=== PATIENT | female | born 1995 | race Two or more races ===

== ENCOUNTER 2019-01-28 22:13 | Emergency (ER) | payer OTHER ==
[~2019-01-28] VITALS: Ht 172.7 cm; Wt 88.5 kg
[2019-01-28] MEDS ORDERED: ONDANSETRON PF 4 MG/2 ML VIAL. ONE (22:20)
[2019-01-28] MEDS ORDERED: fentaNYL PF VIAL 100 MCG/2 ML VIAL ONE (22:20)
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
[2019-01-28] MEDS ORDERED: ONDANSETRON PF 4 MG/2 ML VIAL. IV ONE (22:30)
[2019-01-28] MEDS ORDERED: IV RINGERS,LACTATED 500ML 1,000 ML IV ONE (22:30)
[2019-01-28] MEDS ORDERED: fentaNYL PF VIAL 100 MCG/2 ML VIAL IV ONE (22:30)
[2019-01-28 22:38] LABS: BASO % 0 % (0-3); EOS # 0.1 x10^3/uL (0.0-0.7); EOS % 1 % (0-3); HEMATOCRIT 40.1 % (36.0-47.0); HEMOGLOBIN 13.9 g/dL (12.0-15.5); LYMPH # 3.9 x10^3/uL (1.0-4.8); LYMPH % 56 % (24-48); MEAN CORPUSCULAR HEMOGLOBIN 31 pg (25-35); MEAN CORPUSCULAR HGB CONC 35 g/dL (31-37); MEAN CORPUSCULAR VOLUME 89 fL (79-100); MONO # 0.6 x10^3/uL (0.0-1.1); MONO % 9 % (0-9); NEUT # 2.4 x10^3uL (1.8-7.7); NEUT % 35 % (31-73); PLATELET COUNT 222 x10^3/uL (140-400); RED BLOOD COUNT 4.51 x10^6/uL (3.50-5.40); RED CELL DISTRIBUTION WIDTH 12.9 % (11.5-14.5); WHITE BLOOD COUNT 7.1 x10^3/uL (4.0-11.0)
[2019-01-28] MEDS ORDERED: HYDROcodone/APAP 10/325 1 TAB TABLET PO ONE (22:45)
[2019-01-28] MEDS ORDERED: IV NORMAL SALINE 1000ML BAG 1,000 ML IV ONE (22:45)
[2019-01-28 22:53] LABS: CALCIUM 8.9 mg/dL (8.5-10.1); CREATININE 0.7 mg/dL (0.6-1.0); GFR 102.8; POTASSIUM 3.6 mmol/L (3.5-5.1)
[2019-01-28 23:00] LABS: ALBUMIN 4.2 g/dL (3.4-5.0); TOTAL BILIRUBIN 0.3 mg/dL (0.2-1.0); TOTAL PROTEIN 8.5 g/dL (6.4-8.2)
[2019-01-28] MEDS ORDERED: NAPR-683 PO (23:35)
[2019-01-28] MEDS ORDERED: HYDR-3164 PO (23:35)
[2019-01-29] VITALS: BP 118/72
== END 2019-01-29 00:20 | disposition home or self-care (01) ==
LOC: ER 22:13
DX: T21.21XA Burn of second degree of chest wall, initial encounter (principal); T31.0 Burns involving less than 10% of body surface; X12.XXXA Contact with other hot fluids, initial encounter; Y93.89 Activity, other specified; Y92.89 Other specified places as the place of occurrence of the external cause; Y99.8 Other external cause status
CPT/HCPCS: 16020; 36415; 80053; 85025; 96374; 96375; 99284; J2405; J3010; J7030

== ENCOUNTER 2019-09-12 19:15 | Emergency (ER) | payer OTHER ==
[~2019-09-12] VITALS: Ht 170.2 cm; Wt 75.6 kg
[~2019-09-12 19:15] MED LIST: HYDR-3164 PO; NAPR-683 PO
[2019-09-12 19:41] VITALS: BP 119/60
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
[2019-09-12] MEDS ORDERED: CYCL10TA2 PO (21:16)
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
== END 2019-09-12 21:29 | disposition home or self-care (01) ==
LOC: ER 19:15
DX: S16.1XXA Strain of muscle, fascia and tendon at neck level, initial encounter (principal); R51 Headache; F41.9 Anxiety disorder, unspecified; F17.200 Nicotine dependence, unspecified, uncomplicated; V89.2XXA Person injured in unspecified motor-vehicle accident, traffic, initial encounter; Y93.89 Activity, other specified; Y92.413 State road as the place of occurrence of the external cause; Y99.8 Other external cause status
CPT/HCPCS: 70450; 72125; 81025; 99285

== ENCOUNTER 2021-02-21 11:40 | Emergency (ER) | payer OTHER ==
[~2021-02-21] VITALS: Ht 170.2 cm; Wt 75.0 kg
[~2021-02-21 11:40] MED LIST changes: +CYCL10TA2 PO
[2021-02-21 13:28] LABS: BILIRUBIN,URINE NEGATIVE (NEG); CLARITY,URINE CLEAR; COLOR,URINE YELLOW; NITRITE,URINE NEGATIVE (NEG); PH,URINE 6.5 (<5.0-8.0); PROTEIN,URINE TRACE mg/dL (NEG-TRACE); UROBILINOGEN,URINE 0.2 mg/dL (0.2 mg/dL)
[2021-02-21 13:29] LABS: BACTERIA,URINE FEW /HPF (0-FEW); RBC,URINE 0 /HPF (0-2)
[2021-02-21 14:43] VITALS: BP 101/55
--- NOTE | 2021-02-21 14:44 | RAD ---
US OB LIMITED Clinical Indication: Reason: abd pain, 15 weeks / Comparison: None. Technique: Multiple grayscale images, color Doppler, and M-mode images of the uterus are obtained. Findings: There is a single intrauterine gestation in breech presentation. The placenta is posterior in locatio n without evidence of placenta previa. The amount of amniotic fluid appears appropriate. Amniotic fl uid index is 15 cm. Cervical length is 3.3 cm. Biometrical data: BPD = 3.3 cm for 16 weeks 1 days. HC = 12.3 cm for 16 weeks 1 days. AC = 10.4 cm for 16 weeks 3 days. FL = 2 cm for 16 weeks 1 days. HC/AC ratio = 1.18. Overall, the estimated sonographic gestational age is 16 weeks and 2 days for an estimated date of of August 06, 2021. The estimated date of delivery provided by the last menstrual period is [facility] 2021. Estimated weight is 149 +/- 22 grams. The estimated heart rate is 153 beats per minute. A complete anatomic survey is not performed due to early gestational age. This can be performed at 20 weeks gestation. The maternal ovaries are not identified in the adnexa due to overlying bowel gas. Impression: Single live intrauterine gestation with estimated sonographic gestational age of 16 weeks and 2 days. Electronically signed by: Troy Crawford MD (02/21/2021 2:41 PM) [id number]
--- NOTE | 2021-02-21 14:52 | ED.ADGEN ---
Past Medical History Past Medical History: Anxiety Past Surgical History: No Surgical History Smoking Status: Former Smoker Alcohol Use: Occasionally Drug Use: None General Adult EDM: Chief Complaint: ABDOMINAL PAIN IN HPI: HPI: Patient is a 25 year old [f__sex] who presents with [] Review of Systems: Review of Systems: Complete ROS is negative unless otherwise documented in HPI Allergies: Allergies: Allergies Coded Allergies Type Severity Reaction Last Updated Verified No Known Drug Allergies 03/07/16 No Physical Exam: PE: General: Awake, alert, NAD. Well Nourished, well hydrated. Cooperative HEENT: Atraumatic, EOMI, PERRL, airway patent, moist oral mucosa Neck: Supple, trachea midline Respiratory: CTA bilaterally, normal effort, no wheezing/crackles CV: RRR, no murmur, cap refill <2 GI: Soft, nondistended, nontender, uterus palpated under the umbilicus MSK: No obvious deformities Skin: Warm, dry, intact Neuro: A&O x3, speech NL, sensory and motor grossly intact, no focal deficits Psych: Normal affect, normal mood, not suicidal or homicidal Current Patient Data: Labs: Laboratory Tests Test 02/21/21 12:07 02/21/21 12:11 Urine Collection Type Unknown Urine Color Yellow Urine Clarity Clear Urine pH 6.5 (<5.0-8.0) Urine Specific [place] 1.025 (1.000-1.030) Urine Protein Trace mg/dL (NEG-TRACE) Urine Glucose (UA) Negative mg/dL (NEG) Urine Ketones (Stick) Negative mg/dL (NEG) Urine Blood Negative (NEG) Urine Nitrite Negative (NEG) Urine Bilirubin Negative (NEG) Urine Urobilinogen Dipstick 0.2 mg/dL (0.2 mg/dL) Urine Leukocyte Esterase Negative (NEG) Urine RBC 0 /HPF (0-2) Urine WBC 1-4 /HPF (0-4) Urine Squamous Epithelial Cells Few /LPF Urine Bacteria Few /HPF (0-FEW) POC Urine HCG, Qualitative Hcg positive (Negative) Vital Signs: Vital Signs Date Time Temp Pulse Resp B/P (MAP) Pulse Ox O2 Delivery O2 Flow Rate FiO2 02/21/21 14:43 80 18 98 02/21/21 12:16 98.7 122/61 (79) Room Air 98.7 EKG: EKG: [] Heart Score: C/O Chest Pain: N/A Risk Factors: Risk Factors: DM, Current or recent (<one month) smoker, HTN, HLP, family history of CAD, obesity. Risk Scores: Score 0 - 3: 2.5% MACE over next 6 weeks - Discharge Home Score 4 - 6: 20.3% MACE over next 6 weeks - Admit for Clinical Observation Score 7 - 10: 72.7% MACE over next 6 weeks - Early Invasive Strategies Radiology/Procedures: Radiology/Procedures: [] Course & Med Decision Making: Course & Med Decision Making Pertinent Labs and Imaging studies reviewed. (See chart for details) [] Dragon Disclaimer: Dragon Disclaimer: This electronic medical record was generated, in whole or in part, using a voice recognition dictation system. Departure Departure Impression: Primary Impression: Abdominal pain affecting Disposition: 01 HOME / SELF CARE / HOMELESS Condition: STABLE Referrals: NO PCP (PCP) Patient Instructions: Abdominal Pain During ELVA COLON MD Feb 21, 2021 14:52
== END 2021-02-21 15:28 | disposition home or self-care (01) ==
LOC: ER 11:40
DX: O26.892 Other specified pregnancy related conditions, second trimester (principal); R10.9 Unspecified abdominal pain; Z87.891 Personal history of nicotine dependence; Z3A.15 15 weeks gestation of pregnancy
CPT/HCPCS: 76815; 81001; 81025; 99284-25